=== PATIENT | male | born 1990 | race Caucasian/White ===

== ENCOUNTER 2017-12-12 05:36 | Day surgery (SDC) | payer BC ==
[~2017-12-12] VITALS: Ht 180.3 cm; Wt 69.9 kg
[2017-12-12] VITALS (12 sets, daily range): BP systolic 108–129; BP diastolic 56–77
[~2017-12-12 05:36] MED LIST: NKM
[2017-12-12] MEDS ORDERED: Lidocaine 1% MPF 10mg/ml 5ml ONE (05:37)
[2017-12-12] MEDS ORDERED: Ketorolac 30mg Inj ONE ×2 (05:37→07:10)
[2017-12-12] MEDS ORDERED: fentaNYL 100 mcg/2 mL IV ONE (05:37)
[2017-12-12] MEDS ORDERED: Dexamethasone 4mg/ml vial ONE (05:37)
[2017-12-12] MEDS ORDERED: LR 1000ml ONE (05:37)
[2017-12-12] MEDS ORDERED: Midazolam 2mg/2ml Inj ONE (05:37)
[2017-12-12] MEDS ORDERED: Propofol 200mg/20ml IV ONE (05:37)
[2017-12-12] MEDS ORDERED: celeBREX 200mg Cap **SURGERY PATIENTS ONLY ORAL ONE ×2 (06:15→08:00)
[2017-12-12] MEDS ORDERED: Kenalog-40 1ml Vial ONE (07:10)
[2017-12-12] MEDS ORDERED: Lidocaine 1% 10mg/ml/Epi 0.005mg/ml 30ml vial INJ ONE (07:10)
[2017-12-12] MEDS ORDERED: Morphine Sulfate PF 10 ML ONE (07:10)
[2017-12-12] MEDS ORDERED: Bupivacaine 0.25% Inj 30ml INJ ONE ×2 (07:10→07:39)
[2017-12-12] MEDS ORDERED: LR 1000ml 1,000 ML IVLG SCH (07:24)
--- NOTE | 2017-12-12 07:24 | Anethesia Preoperative Eval ---
Anesthesia Pre-op PMH/ROS General Date of Evaluation: Dec 12, 2017 Anesthesiologist: Callum ASA Score: ASA 1 Mallampati Score Class I : Soft palate, uvula, fauces, pillars visible Class II: Soft palate, uvula, fauces visible Class III: Soft palate, base of uvula visible Class IV: Only hard plate visible Mallampati Classification: Class I Surgeon: Kai Diagnosis: Right knee torn medial meniscus Surgical Procedure: Right knee arthroscopy, medial meniscectomy Anesthesia History: none Family History: no anesthesia problems Allergies: Coded Allergies: No Known Allergies (Unverified , 12/11/17) Medications: see eMAR Past Medical History Cardiovascular: Denies: HTN, CAD, MS, valve dz, arrhythmia, other Pulmonary: Denies: asthma, COPD, NINI, other Gastrointestinal/Genitourinary: Denies: GERD, CRI, ESRD, other Neurologic/Psychiatric: Denies: dementia, CVA, depression/anxiety, TIA, other Endocrine: Denies: DM, hypothyroidism, steroids, other HEENT: Denies: cataract (L), cataract (R), glaucoma, [place] (L), [place] (R), other Hematology/Immune: Denies: anemia, DVT, bleeding disorder, other Musculoskeletal/Integumentary: Denies: OA, RA, DJD, DDD, edema, other PSxH Narrative: Denies Anesthesia Pre-op Phys. Exam Physician Exam Last Vital Signs Date Time Temp Pulse Resp B/P (MAP) Pulse Ox O2 Delivery O2 Flow Rate FiO2 12/12/17 06:05 97.9 73 18 128/73 100 Room Air Constitutional: NAD Cardiovascular: RRR Respiratory: CTA Airway Exam Mallampati Score: Class I MO: full ROM: full Teeth: intact Anesthesia Pre-op A/P Labs see chart Studies Pre-op Studies: EKG - sr Risk Assessment & Plan Assessment: ASA I Plan: GA Status Change Before Surgery: No Pre-Antibiotics Drug: Ancef 1g Given Within 1 Hr of Incision: Yes NEO BUCHANAN M.D. Dec 12, 2017 07:24
--- NOTE | 2017-12-12 07:27 | Immediate Post-Op Evaluation ---
Immediate Post-Op Evalulation Immediate Post-Op Evalulation Procedure: Right knee arthroscopy and medial meniscectomy Date of Evaluation: Dec 12, 2017 Time of Evaluation: 08:44 IV Fluids: 800 Blood Products: 0 Estimated Blood Loss: min Urinary Output: 0 Blood Pressure Systolic: 118 Blood Pressure Diastolic: 56 Pulse Rate: 66 Respiratory Rate: 16 O2 Sat by Pulse Oximetry: 100 Temperature (Fahrenheit): 97.7 Pain Score (1-10): 0 Nausea: No Vomiting: No Complications 0 Patient Status: awake, reacts, patent, none Hydration Status: adequate Drug: Ancef 1g Given Within 1 Hr of Incision: Yes Time Given: 08:05 NEO BUCHANAN M.D. Dec 12, 2017 07:27
--- NOTE | 2017-12-12 07:27 | 48 Hour Post Anesthesia Eval ---
Post Anesthesia Evaluation Procedure: Right knee arthroscopy and medial meniscectomy Date of Evaluation: Dec 12, 2017 Airway: patent Nausea: No Vomiting: No Pain Intensity: 0 Hydration Status: adequate Cardiopulmonary Status: at baseline Mental Status/LOC: patient returned to baseline Post-Anesthesia Complications: 0 Follow-up care needed: ready to discharge NEO BUCHANAN M.D. Dec 12, 2017 07:27
[2017-12-12] MEDS ORDERED: Hydromorphone 0.5mg/0.5ml inj IVP PRN (07:30)
[2017-12-12] MEDS ORDERED: fentaNYL 100 mcg/2 mL IV PRN (07:30)
[2017-12-12] MEDS ORDERED: Midazolam 2mg/2ml Inj IVP PRN (07:30)
[2017-12-12] MEDS ORDERED: NS Irrig 4000ml IRRIG ONE (07:30)
[2017-12-12] MEDS ORDERED: DiphenhydrAMINE 50mg/ml Inj IVP PRN (07:30)
[2017-12-12] MEDS ORDERED: Duramorph PF 10mg/10ml amp EPIDUR ONE (07:30)
--- NOTE | 2017-12-12 07:33 | Operative Note - PDOC ---
Operative Note Operative Note Pre-op Diagnosis: right knee medial meniscus tear Procedure: right knee medial menisectomy Post-op Diagnosis: same as pre-op plus Operative Findings: consistent w/pre-op dx studies Anesthesia: MAC Specimen: none Complications: none Condition: stable Estimated Blood Loss: none Implant(s) used?: No MAGAN YUEN Dec 12, 2017 07:33
--- NOTE | 2017-12-12 07:33 | Pre-Procedure Note/Attestation ---
Pre-Procedure Note/Attestation Complete Prior to Procedure Planned Procedure: right Procedure Narrative: knee medial menisectomy Indications for Procedure Pre-Operative Diagnosis: right knee medial meniscus tear Attestation I attest that I discussed the nature of the procedure; its benefits; risks and complications; and alternatives (and the risks and benefits of such alternatives ), prior to the procedure, with the patient (or the patient's legal account development representative). I attest that, if there was a reasonable possibility of needing a blood transfusion, the patient (or the patient's legal account development representative) was given the [facility] standardized written summary, pursuant to the Nikhil Evita Blood Safety Act ([place] Health and Safety Code # 1645, as amended). I attest that I re-evaluated the patient just prior to the surgery and that there has been no change in the patient's H&P, except as documented below: MAGAN YUEN Dec 12, 2017 07:33
[2017-12-12] MEDS ORDERED: Norco 5mg/325mg tab ORAL PRN (07:45)
[2017-12-12] MEDS ORDERED: Tylenol #3 tab (300mg/30mg) ORAL PRN (07:45)
[2017-12-12] MEDS ORDERED: D5 1/2NS 1,000 ML IV SCH (07:45)
[2017-12-12] MEDS ORDERED: HYDROmorphone 1mg/ml Carpuject SUBQ PRN (07:45)
[2017-12-12] MEDS ORDERED: ceFAZolin 1 GM premix IV ONE (08:00)
[2017-12-12] MEDS ORDERED: oxyCONTIN 20mg tab ORAL ONE (08:00)
--- NOTE | 2017-12-12 15:30 | Operative Note - Dictated ---
DATE OF OPERATION: 12/12/2017 PREOPERATIVE DIAGNOSIS: Right knee medial meniscus tear. POSTOPERATIVE DIAGNOSIS: Right knee medial meniscus tear. PROCEDURES: 1. Right knee arthroscopic partial medial meniscectomy. 2. Synovectomy, medial and lateral patellofemoral compartments. SURGEON: William Quinn M.D. ANESTHESIA: MAC. INDICATION FOR THE PROCEDURE: The patient is a pleasant gentleman, who has had progressive right knee pain. He had MRI, which showed a complex tear of the posterior horn, medial meniscus. He continued to have pain and elected undergo right knee arthroscopy and possible meniscectomy. Risks, limitations, expectations, and complication of the procedure were discussed in detail. All questions were addressed. DESCRIPTION OF PROCEDURE: An informed consent was obtained. The patient was brought to the operating room. The patient was placed under monitored anesthesia control. Under sterile condition, 20 mL of Marcaine was injected into the right knee. Portal sites were injected with 1% lidocaine with epinephrine. Inferolateral stab incision was then made. Trocar was introduced into the knee joint. Systematic tour of the knee was performed. There was no significant chondral damage of the patellofemoral compartment. The medial compartment was entered, and there was a complex radial tear of the posterior horn, medial meniscus. A medial working portal was established. Partial meniscectomy was performed down to a stable rim of tissue. Once that was completed, the synovectomy was completed. The intercondylar notch was better visualized. The ACL, which was probed noted to be intact. Synovectomy was completed in the lateral compartment to allow entrance into the lateral compartment. There was no meniscal chondral damage. Camera was then positioned in the retropatellar space. Some of the retropatellar fat pad was excised. Once that was completed, the instruments were removed. Portal sites were closed using 3-0 Monocryl suture. Steri-Strips and a sterile dressing were applied. The patient was awoken and taken to recovery room with stable vital signs. ESTIMATED BLOOD LOSS: Minimal. COMPLICATIONS: None. SPECIMENS: None. IMPLANTS: None. William Quinn M.D. DR: KIRBY JOB#: [id number] CC:
== END 2017-12-12 11:10 | disposition home or self-care (01) ==
LOC: SDS 05:36
DX: S83.241A Other tear of medial meniscus, current injury, right knee, initial encounter (principal); X58.XXXA Exposure to other specified factors, initial encounter; Y93.9 Activity, unspecified; Y92.9 Unspecified place or not applicable
CPT/HCPCS: 29876; 29881; 97161; J1100; J1885; J2250; J2274; J2405; J2704; J3010; J3301; J3490; J7120; 94003; 94150